=== PATIENT | male | born 1955 | race Caucasian/White ===

== ENCOUNTER 2021-04-27 00:26 | Observation (INO) | payer MEDICARE, SELFPAY ==
[2021-04-27] VITALS (13 sets, daily range): BP systolic 105–144; BP diastolic 54–90; PULSE 62–94; RESP 15–24; TEMP 36.7–39.4; O2SAT 90–100; BMI 38.0; BMI 39.4
--- NOTE | 2021-04-27 01:00 | PC.NURSE ---
spoke w/ poison control about pt's ivermectin use. Poison control advised most common side effects are abd pain, n/v. there is no toxic dose listed
--- NOTE | 2021-04-27 01:26 | ED_ITS ---
Documented by User: [email or web address] Julio 04/27/21 18:14 HPI - Abdominal Pain General: Chief Complaint: ER Hold Stated Complaint: severe abd pains Time Seen by Provider: 04/27/21 01:24 History of Present Illness: HPI narrative: 65-year-old male patient comes in with right lower quadrant abdominal pain. Patient reports pain has been going on since last night but has been worse tonight. Patient reported diarrhea yesterday. Patient has been ill since Sunday with upper respiratory infection and tested positive for COVID-19 on Sunday. Patient spouse is giving him ivermectin personal protection specialist 1 mill per 100 pounds since yesterday. Patient appears unwell. Patient appears in moderate to severe pain. Associated Symptoms: Reports nausea Review of Systems General: Reports: 10 or more systems reviewed and unremarkable except in HPI and below GI: Reports: abdominal pain and nausea PFSH ED PFSH: Medical History (Updated 04/27/21 @ 09:21 by Larisa Muller MD) Arthritis BMI 38.0-38.9,adult Erectile dysfunction sildenafil GERD (gastroesophageal reflux disease) Gout Hyperlipidemia Hypertension Surgical History (Updated 04/27/21 @ 08:28 by Jeremy Lundberg MD) History of blepharoplasty History of knee surgery Bilateral History of ventral hernia repair x 6 ([place], [place], etc.) Status post cholecystectomy Family History (Updated 04/27/21 @ 09:07 by Larisa Muller MD) Son Diabetes Type 1 diabetes Social History (Updated 04/27/21 @ 09:07 by Larisa Muller MD) Smoking and tobacco status: never smoked Alcohol intake: current Alcohol use comment: Rare Substance/Drug Use: never Household members: spouse Marital status: Physical Exam Const: COMMON NORMALS: no acute distress and patient oriented x3 GENERAL APPEARANCE: cooperative HENMT: COMMON NORMALS: normocephalic and Normal external nose present HEAD & SCALP: normal to inspection and normocephalic NOSE: Normal external nose present MOUTH: Normal oral and palatal mucosa present Eye: GENERAL EYE: appearance normal, both eyes and all related structures Neck/C-Spine: COMMON NORMALS: full ROM Lymph: LYMPHATIC: no lymphadenopathy noted Chest: COMMONS NORMALS: normal inspection of the chest Resp: COMMON NORMALS: normal respiratory effort EFFORT & INSPECTION: Yes able to speak in complete sentences Cardio: COMMON NORMALS: regular rate and regular rhythm RATE: regular rate RHYTHM: regular rhythm GI: COMMON NORMALS: Soft to palpation AUSCULTATION: Yes Hyperactive bowel sounds present PALPATION: Yes Soft to palpation, Yes Tenderness to palpation present (GI) Details: RLQ, No Guarding due to palpation present (GI) and Yes Re bound tenderness present : COMMON NORMALS: Yes no CVA tenderness BLADDER/KIDNEY EXAM: Yes no CVA tenderness Back/Pelvis: COMMON NORMALS: no CVA tenderness and thoracic and lumbar spine normal to inspection Extremity: COMMON NORMALS: normal to inspection Neuro: COMMON NORMALS: patient oriented x3 and moves all extremities Psych: COMMON NORMALS: mental status grossly normal and cooperative Skin: COMMON NORMALS: no rashes or lesions noted GENERAL SKIN EXAM: no rashes or lesions noted Course ED course: 030, reviewed patient with Dr. Sanchez as he is to assume care at patient on my end of shift. Vital Signs: Vital signs: Vital Signs Temperature 99.7 F H 04/27/21 15:50 Pulse Rate 81 04/27/21 15:50 Respiratory Rate 18 04/27/21 15:50 Blood Pressure 138/90 04/27/21 15:50 Pulse Oximetry 95 04/27/21 15:50 MDM - Abdominal Pain Lab Data: Labs: Lab Results 04/27/21 04/27/21 04/27/21 01:40 01:40 01:40 WBC 7.5 10^3/uL 10^3/ uL (4.0-10.0) RBC 5.81 10^6/uL H 10 ^6/uL (4.1-5.3) Hgb 17.9 g/dL H g/dL (11.7-16.6) Hct 53.3 % H % (42.0-52.0) MCV 91.7 fl fl (80-94) MCH 30.8 pg pg (28.0-34.0) MCHC 33.6 g/dL g/dL (30.0-36.0) RDW 12.6 % % (12.1-15.1) Plt Count 185 10^3/cmm 10^3 /cmm (130-400) MPV 11.5 fL H fL (7.4-10.4) Neut % (Auto) 72.0 % % Lymph % (Auto) 16.9 % % [place] % (Auto) 10.4 % % Eos % (Auto) 0.0 % % Baso % (Auto) 0.3 % % Neut # (Auto) 5.41 10^3/uL 10^3 /uL (1.8-7.7) Lymph # (Auto) 1.3 10^3/uL 10^3/ uL (0.8-4.8) [place] # (Auto) 0.8 10^3/uL 10^3/ uL (0.2-0.9) Eos # (Auto) 0.0 10^3/uL 10^3/ uL (0.0-0.8) Baso # (Auto) 0.0 10^3/uL 10^3/ uL (0.0-0.1) Nucleated RBC % (a uto) 0 % % Nucleated RBCs # 0.0 /100WBC /100W BC PT INR Sodium 136 mmol/L mmol/L (136-145) Potassium 5.1 mmol/L mmol/L (3.5-5.1) Chloride 102 mmol/L mmol/L (98-107) Carbon Dioxide 17 mmol/L L mmol/ L (22-29) Anion Gap 22.1 H (5-19) BUN 21 mg/dL mg/dL (8-23) Creatinine 1.0 mg/dL mg/dL (0.7-1.2) GFR Calculation 74.8 mL/min L mL/ min (90-130) Glucose 135 mg/dL H mg/dL (65-115) Calculated Osmolal ity 287 mOsm/kg mOsm/ kg (285-295) Lactate 1.4 mmol/L mmol/L (0.5-2.2) Calcium 7.9 mg/dL L mg/dL (8.5-10.5) Total Bilirubin 0.3 mg/dL mg/dL (0.15-1.2) AST 44 U/L H U/L (0-40) ALT 29 U/L U/L (0-41) Alkaline Phosphata se 64 IU/L IU/L (40-130) Total Protein 7.3 g/dL g/dL (6.6-8.7) Albumin 4.2 g/dL g/dL (3.5-5.2) Globulin 3.1 g/dL g/dL (1.3-4.6) Lipase 38 U/L U/L (13-60) 04/27/21 01:40 WBC RBC Hgb Hct MCV MCH MCHC RDW Plt Count MPV Neut % (Auto) Lymph % (Auto) [place] % (Auto) Eos % (Auto) Baso % (Auto) Neut # (Auto) Lymph # (Auto) [place] # (Auto) Eos # (Auto) Baso # (Auto) Nucleated RBC % (a uto) Nucleated RBCs # PT 12.40 SECONDS SEC ONDS (12.1-14.9) INR 0.90 (0.8-1.2) Sodium Potassium Chloride Carbon Dioxide Anion Gap BUN Creatinine GFR Calculation Glucose Calculated Osmolal ity Lactate Calcium Total Bilirubin AST ALT Alkaline Phosphata se Total Protein Albumin Globulin Lipase Discharge Plan Discharge Patient Disposition: Placed in Observation Admit Provider: Latonia Aponte Clinical Impression: COVID-19 Rectus sheath hematoma Qualifiers: Encounter type: initial encounter Qualified Code(s): S30.1XXA - Contusion of abdominal wall, initial encounter Coding Level of Care Code ED Injection Molding Engineer for Chg Fwd Exam Comprehensive Documented by User: Satish Sanchez MD 04/27/21 05:22 HPI - Abdominal Pain General: Chief Complaint: ER Hold Stated Complaint: severe abd pains Time Seen by Provider: 04/27/21 01:24 [facility] ED PFSH: Medical History (Updated 04/27/21 @ 09:21 by Larisa Muller MD) Arthritis BMI 38.0-38.9,adult Erectile dysfunction sildenafil GERD (gastroesophageal reflux disease) Gout Hyperlipidemia Hypertension Surgical History (Updated 04/27/21 @ 08:28 by Jeremy Lundberg MD) History of blepharoplasty History of knee surgery Bilateral History of ventral hernia repair x 6 ([place], [place], etc.) Status post cholecystectomy Family History (Updated 04/27/21 @ 09:07 by Lairsa Muller MD) Son Diabetes Type 1 diabetes Social History (Updated 04/27/21 @ 09:07 by Larisa Muller MD) Smoking and tobacco status: never smoked Alcohol intake: current Alcohol use comment: Rare Substance/Drug Use: never Household members: spouse Marital status: Course Vital Signs: Vital signs: Vital Signs Temperature 99.7 F H 04/27/21 15:50 Pulse Rate 81 04/27/21 15:50 Respiratory Rate 18 04/27/21 15:50 Blood Pressure 138/90 04/27/21 15:50 Pulse Oximetry 95 04/27/21 15:50 MDM - Abdominal Pain MDM Narrative: Medical decision making narrative: Patient presents here with abdominal pain he has a rectus sheath hematoma patient's INR here is normal hemoglobin is normal as well as vital signs here been normal patient does have Covid I spoke to the hospitalist who is admitting also spoke to surgeon who is consulted and will admit for observation at this time. Lab Data: Labs: Lab Results 04/27/21 04/27/21 04/27/21 01:40 01:40 01:40 WBC 7.5 10^3/uL 10^3/ uL (4.0-10.0) RBC 5.81 10^6/uL H 10 ^6/uL (4.1-5.3) Hgb 17.9 g/dL H g/dL (11.7-16.6) Hct 53.3 % H % (42.0-52.0) MCV 91.7 fl fl (80-94) MCH 30.8 pg pg (28.0-34.0) MCHC 33.6 g/dL g/dL (30.0-36.0) RDW 12.6 % % (12.1-15.1) Plt Count 185 10^3/cmm 10^3 /cmm (130-400) MPV 11.5 fL H fL (7.4-10.4) Neut % (Auto) 72.0 % % Lymph % (Auto) 16.9 % % [place] % (Auto) 10.4 % % Eos % (Auto) 0.0 % % Baso % (Auto) 0.3 % % Neut # (Auto) 5.41 10^3/uL 10^3 /uL (1.8-7.7) Lymph # (Auto) 1.3 10^3/uL 10^3/ uL (0.8-4.8) [place] # (Auto) 0.8 10^3/uL 10^3/ uL (0.2-0.9) Eos # (Auto) 0.0 10^3/uL 10^3/ uL (0.0-0.8) Baso # (Auto) 0.0 10^3/uL 10^3/ uL (0.0-0.1) Nucleated RBC % (a uto) 0 % % Nucleated RBCs # 0.0 /100WBC /100W BC PT INR Sodium 136 mmol/L mmol/L (136-145) Potassium 5.1 mmol/L mmol/L (3.5-5.1) Chloride 102 mmol/L mmol/L (98-107) Carbon Dioxide 17 mmol/L L mmol/ L (22-29) Anion Gap 22.1 H (5-19) BUN 21 mg/dL mg/dL (8-23) Creatinine 1.0 mg/dL mg/dL (0.7-1.2) GFR Calculation 74.8 mL/min L mL/ min (90-130) Glucose 135 mg/dL H mg/dL (65-115) Calculated Osmolal ity 287 mOsm/kg mOsm/ kg (285-295) Lactate 1.4 mmol/L mmol/L (0.5-2.2) Calcium 7.9 mg/dL L mg/dL (8.5-10.5) Total Bilirubin 0.3 mg/dL mg/dL (0.15-1.2) AST 44 U/L H U/L (0-40) ALT 29 U/L U/L (0-41) Alkaline Phosphata se 64 IU/L IU/L (40-130) Total Protein 7.3 g/dL g/dL (6.6-8.7) Albumin 4.2 g/dL g/dL (3.5-5.2) Globulin 3.1 g/dL g/dL (1.3-4.6) Lipase 38 U/L U/L (13-60) 04/27/21 01:40 WBC RBC Hgb Hct MCV MCH MCHC RDW Plt Count MPV Neut % (Auto) Lymph % (Auto) [place] % (Auto) Eos % (Auto) Baso % (Auto) Neut # (Auto) Lymph # (Auto) [place] # (Auto) Eos # (Auto) Baso # (Auto) Nucleated RBC % (a uto) Nucleated RBCs # PT 12.40 SECONDS SEC ONDS (12.1-14.9) INR 0.90 (0.8-1.2) Sodium Potassium Chloride Carbon Dioxide Anion Gap BUN Creatinine GFR Calculation Glucose Calculated Osmolal ity Lactate Calcium Total Bilirubin AST ALT Alkaline Phosphata se Total Protein Albumin Globulin Lipase Imaging Data ^: CT Abd/Pel: Radiologist's impression: [id number] [id number] [address] Scan Report Signed with Addenda Patient: Will Moy Unit #: [id number] : 1955 Age/Sex: 65 / M ADM Date: 04/27/21 Loc: ER Room/Bed: Attending Dr: Ordering Provider/Ordering MD: Harry Jones NP Date of Service: 04/27/21 Procedure(s): CT abdomen pelvis w con* [id number] Accession Number(s): [id number] Report Number: [id number]/CT abdomen pelvis w con* [id number] THIS REPORT CONTAINS FINDINGS THAT MAY BE CRITICAL TO PATIENT CARE. The findings were verbally communicated via telephone conference with Dr. Sanchez by Dr. Corey on 04/27/2021 4:52 AM NATIONAL SALES EXECUTIVE. The results were acknowledged and understood. Addendum Dictated By: Kim Corey DO Addendum Signed By: Kim Corey DO Signed Date/Time: 04/27 0454 Addendum Cosigned By: PROCEDURE INFORMATION: Exam: CT Abdomen And Pelvis With Contrast Exam date and time: 04/27/2021 1:32 AM Age: 65 years old Clinical indication: Abdominal pain; Localized; Right lower quadrant (rlq); Prior surgery; Surgery type: Gb. Hernia mesh. ; Patient HX: C/O severe rlq pain. Patient is covid +. ; Additional info: Severe right lower abd pain TECHNIQUE: Imaging protocol: Computed tomography of the abdomen and pelvis with contrast. Radiation optimization: All CT scans at this facility use at least one of these dose optimization techniques: automated exposure control; mA and/or kV adjustment per patient size (includes targeted exams where dose is matched to clinical indication); or iterative reconstruction. Contrast material: OMNI 300; Contrast volume: 95 ml; Contrast route: INTRAVENOUS (IV); COMPARISON: CT abdomen pelvis w con* [id number] 10/20/2018 6:39 PM RADIATION DOSE METRICS: Total DLP (mGy-cm): 1910.6 FINDINGS: Tubes, catheters and devices: Abdominal surgical mesh device in position within the inner margin of abdominal wall. Lungs: Dependent atelectasis lower lungs posteriorly. There are minor patchy interstitial opacities peripherally within the lower lungs partially ground-glass in attenuation. Minor lingular atelectasis. Liver: Normal. No mass. Gallbladder and bile ducts: Postoperative cholecystectomy. Pancreas: Normal. No ductal dilation. Spleen: Normal. No splenomegaly. Adrenal glands: Normal. No mass. Kidneys and ureters: Normal. No hydronephrosis. Stomach and bowel: Prominent colonic diverticulosis. Medial extending duodenal diverticulum containing debris and air. Appendix: No evidence of appendicitis. Intraperitoneal space: Unremarkable. No free air. No significant fluid collection. Vasculature: Atherosclerotic calcification abdominal aorta. Lymph nodes: Unremarkable. No enlarged lymph nodes. Urinary bladder: Unremarkable as visualized. Reproductive: Unremarkable as visualized. Bones/joints: Unremarkable. No acute fracture. Soft tissues: Abnormal expansion of the right abdominal rectus musculature with lobular heterogeneous mixed attenuating mass suspicious for hematoma. Curvilinear hyperattenuating extravasation of contrast suspicious for active hemorrhage. Overall hematoma measures approximately 18.3 cm craniocaudal by 12.5 cm transverse by 5.8 cm antral posterior. Focal fatty rounded lesion in the right upper quadrant which could reflect chronic marginated omental lipoma or a chronic appearance of minor focal fat necrosis. CT/CT abdomen pelvis w con* [id number] IMPRESSION: 1. Right rectus abdominal muscular hematoma with suspicion active hemorrhage. 2. Atherosclerosis abdominal aorta. 3. Duodenal diverticulum. 4. Colonic diverticulosis. 5. Atelectasis lower lungs posteriorly with minor ground-glass interstitial patchy opacities peripherally in the lower lobe of lungs. Discharge Plan Discharge Patient Disposition: Placed in Observation Admit Provider: Latonia Aponte Clinical Impression: COVID-19 Rectus sheath hematoma Qualifiers: Encounter type: initial encounter Qualified Code(s): S30.1XXA - Contusion of abdominal wall, initial encounter Coding Level of Care Code ED Injection Molding Engineer for Shar Fwd Exam Comprehensive Documented by User: Larisa Muller MD 04/27/21 10:20 HPI - Abdominal Pain General: Chief Complaint: ER Hold Stated Complaint: severe abd pains Time Seen by Provider: 04/27/21 01:24 History of Present Illness: HPI narrative: I inadvertently entered the ED chart when assuming care of patient. I did not participate in the care of patient during the emergency department part of his stay. [facility] ED PFSH: Medical History (Updated 04/27/21 @ 09:21 by Larisa Muller MD) Arthritis BMI 38.0-38.9,adult Erectile dysfunction sildenafil GERD (gastroesophageal reflux disease) Gout Hyperlipidemia Hypertension Surgical History (Updated 04/27/21 @ 08:28 by Jeremy Lundberg MD) History of blepharoplasty History of knee surgery Bilateral History of ventral hernia repair x 6 ([place], [place], etc.) Status post cholecystectomy Family History (Updated 04/27/21 @ 09:07 by Larisa Muller MD) Son Diabetes Type 1 diabetes Social History (Updated 04/27/21 @ 09:07 by Larisa Muller MD) Smoking and tobacco status: never smoked Alcohol intake: current Alcohol use comment: Rare Substance/Drug Use: never Household members: spouse Marital status: Course Vital Signs: Vital signs: Vital Signs Temperature 99.7 F H 04/27/21 15:50 Pulse Rate 81 04/27/21 15:50 Respiratory Rate 18 04/27/21 15:50 Blood Pressure 138/90 04/27/21 15:50 Pulse Oximetry 95 04/27/21 15:50 MDM - Abdominal Pain Lab Data: Labs: Lab Results 04/27/21 04/27/21 04/27/21 01:40 01:40 01:40 WBC 7.5 10^3/uL 10^3/ uL (4.0-10.0) RBC 5.81 10^6/uL H 10 ^6/uL (4.1-5.3) Hgb 17.9 g/dL H g/dL (11.7-16.6) Hct 53.3 % H % (42.0-52.0) MCV 91.7 fl fl (80-94) MCH 30.8 pg pg (28.0-34.0) MCHC 33.6 g/dL g/dL (30.0-36.0) RDW 12.6 % % (12.1-15.1) Plt Count 185 10^3/cmm 10^3 /cmm (130-400) MPV 11.5 fL H fL (7.4-10.4) Neut % (Auto) 72.0 % % Lymph % (Auto) 16.9 % % [place] % (Auto) 10.4 % % Eos % (Auto) 0.0 % % Baso % (Auto) 0.3 % % Neut # (Auto) 5.41 10^3/uL 10^3 /uL (1.8-7.7) Lymph # (Auto) 1.3 10^3/uL 10^3/ uL (0.8-4.8) [place] # (Auto) 0.8 10^3/uL 10^3/ uL (0.2-0.9) Eos # (Auto) 0.0 10^3/uL 10^3/ uL (0.0-0.8) Baso # (Auto) 0.0 10^3/uL 10^3/ uL (0.0-0.1) Nucleated RBC % (a uto) 0 % % Nucleated RBCs # 0.0 /100WBC /100W BC PT INR Sodium 136 mmol/L mmol/L (136-145) Potassium 5.1 mmol/L mmol/L (3.5-5.1) Chloride 102 mmol/L mmol/L (98-107) Carbon Dioxide 17 mmol/L L mmol/ L (22-29) Anion Gap 22.1 H (5-19) BUN 21 mg/dL mg/dL (8-23) Creatinine 1.0 mg/dL mg/dL (0.7-1.2) GFR Calculation 74.8 mL/min L mL/ min (90-130) Glucose 135 mg/dL H mg/dL (65-115) Calculated Osmolal ity 287 mOsm/kg mOsm/ kg (285-295) Lactate 1.4 mmol/L mmol/L (0.5-2.2) Calcium 7.9 mg/dL L mg/dL (8.5-10.5) Total Bilirubin 0.3 mg/dL mg/dL (0.15-1.2) AST 44 U/L H U/L (0-40) ALT 29 U/L U/L (0-41) Alkaline Phosphata se 64 IU/L IU/L (40-130) Total Protein 7.3 g/dL g/dL (6.6-8.7) Albumin 4.2 g/dL g/dL (3.5-5.2) Globulin 3.1 g/dL g/dL (1.3-4.6) Lipase 38 U/L U/L (13-60) 04/27/21 01:40 WBC RBC Hgb Hct MCV MCH MCHC RDW Plt Count MPV Neut % (Auto) Lymph % (Auto) [place] % (Auto) Eos % (Auto) Baso % (Auto) Neut # (Auto) Lymph # (Auto) [place] # (Auto) Eos # (Auto) Baso # (Auto) Nucleated RBC % (a uto) Nucleated RBCs # PT 12.40 SECONDS SEC ONDS (12.1-14.9) INR 0.90 (0.8-1.2) Sodium Potassium Chloride Carbon Dioxide Anion Gap BUN Creatinine GFR Calculation Glucose Calculated Osmolal ity Lactate Calcium Total Bilirubin AST ALT Alkaline Phosphata se Total Protein Albumin Globulin Lipase Discharge Plan Discharge Patient Disposition: Placed in Observation Admit Provider: Latonia Aponte Clinical Impression: COVID-19 Rectus sheath hematoma Qualifiers: Encounter type: initial encounter Qualified Code(s): S30.1XXA - Contusion of abdominal wall, initial encounter Coding Level of Care Code ED Injection Molding Engineer for Chg Fwd Exam Comprehensive
--- NOTE | 2021-04-27 01:32 | CTR_ITS ---
PROCEDURE INFORMATION: Exam: CT Abdomen And Pelvis With Contrast Exam date and time: 04/27/2021 1:32 AM Age: 65 years old Clinical indication: Abdominal pain; Localized; Right lower quadrant (rlq); Prior surgery; Surgery type: Gb. Hernia mesh. ; Patient HX: C/O severe rlq pain. Patient is covid +. ; Additional info: Severe right lower abd pain TECHNIQUE: Imaging protocol: Computed tomography of the abdomen and pelvis with contrast. Radiation optimization: All CT scans at this facility use at least one of these dose optimization techniques: automated exposure control; mA and/or kV adjustment per patient size (includes targeted exams where dose is matched to clinical indication); or iterative reconstruction. Contrast material: OMNI 300; Contrast volume: 95 ml; Contrast route: INTRAVENOUS (IV); COMPARISON: CT abdomen pelvis w con* [id number] 10/20/2018 6:39 PM RADIATION DOSE METRICS: Total DLP (mGy-cm): 1910.6 FINDINGS: Tubes, catheters and devices: Abdominal surgical mesh device in position within the inner margin of abdominal wall. Lungs: Dependent atelectasis lower lungs posteriorly. There are minor patchy interstitial opacities peripherally within the lower lungs partially ground-glass in attenuation. Minor lingular atelectasis. Liver: Normal. No mass. Gallbladder and bile ducts: Postoperative cholecystectomy. Pancreas: Normal. No ductal dilation. Spleen: Normal. No splenomegaly. Adrenal glands: Normal. No mass. Kidneys and ureters: Normal. No hydronephrosis. Stomach and bowel: Prominent colonic diverticulosis. Medial extending duodenal diverticulum containing debris and air. Appendix: No evidence of appendicitis. Intraperitoneal space: Unremarkable. No free air. No significant fluid collection. Vasculature: Atherosclerotic calcification abdominal aorta. Lymph nodes: Unremarkable. No enlarged lymph nodes. Urinary bladder: Unremarkable as visualized. Reproductive: Unremarkable as visualized. Bones/joints: Unremarkable. No acute fracture. Soft tissues: Abnormal expansion of the right abdominal rectus musculature with lobular heterogeneous mixed attenuating mass suspicious for hematoma. Curvilinear hyperattenuating extravasation of contrast suspicious for active hemorrhage. Overall hematoma measures approximately 18.3 cm craniocaudal by 12.5 cm transverse by 5.8 cm antral posterior. Focal fatty rounded lesion in the right upper quadrant which could reflect chronic marginated omental lipoma or a chronic appearance of minor focal fat necrosis. CT/CT abdomen pelvis w con* [id number] IMPRESSION: 1. Right rectus abdominal muscular hematoma with suspicion active hemorrhage. 2. Atherosclerosis abdominal aorta. 3. Duodenal diverticulum. 4. Colonic diverticulosis. 5. Atelectasis lower lungs posteriorly with minor ground-glass interstitial patchy opacities peripherally in the lower lobe of lungs.
[2021-04-27] MEDS: sodium chloride 0.9% 1,000 ML 999 ML IV (02:00)
[2021-04-27] MEDS: ondansetron 2 mg/ML SDV 2 mL 4 MG IVP (02:05)
[2021-04-27 02:11] LABS: Basophils % 0.3 %; Hematocrit 53.3 % (42.0-52.0); Hemoglobin 17.9 g/dL (11.7-16.6); Lymphocytes # 1.3 10^3/uL (0.8-4.8); Lymphocytes % 16.9 %; Mean Corpuscular HGB Conc 33.6 g/dL (30.0-36.0); Mean Corpuscular Hemoglobin 30.8 pg (28.0-34.0); Mean Corpuscular Volume 91.7 fl (80-94); Mean Platelet Volume 11.5 fL (7.4-10.4); Monocytes # 0.8 10^3/uL (0.2-0.9); Monocytes % 10.4 %; Neutrophils # 5.41 10^3/uL (1.8-7.7); Nucleated Red Blood Cells % 0 %; Platelet Count 185 10^3/cmm (130-400); Red Blood Count 5.81 10^6/uL (4.1-5.3); Red Cell Distribution Width 12.6 % (12.1-15.1); White Blood Count 7.5 10^3/uL (4.0-10.0)
[2021-04-27 02:31] LABS: Alanine Aminotransferase 29 U/L (0-41); Albumin Level 4.2 g/dL (3.5-5.2); Alkaline Phosphatase 64 IU/L (40-130); Anion Gap 22.1 (5-19); Aspartate Amino Transferase 44 U/L (0-40); Blood Urea Nitrogen 21 mg/dL (8-23); Calcium 7.9 mg/dL (8.5-10.5); Carbon Dioxide 17 mmol/L (22-29); Chloride 102 mmol/L (98-107); Globulin 3.1 g/dL (1.3-4.6); Glomerular Filtration Rate 74.8 mL/min (90-130); Glucose 135 mg/dL (65-115); Lipase 38 U/L (13-60); Osmolality Calculated 287 mOsm/kg (285-295); Potassium 5.1 mmol/L (3.5-5.1); Sodium 136 mmol/L (136-145); Total Bilirubin 0.3 mg/dL (0.15-1.2); Total Protein 7.3 g/dL (6.6-8.7)
[2021-04-27 02:32] LABS: Lactate (Lactic Acid level) 1.4 mmol/L (0.5-2.2)
[2021-04-27] MEDS: morphine 4 mg/mL SDV 1 mL IVP ×2 (02:38→05:05)
[2021-04-27] MEDS: iohexol 300 mg/mL 100 mL Btl IV (03:10)
--- NOTE | 2021-04-27 05:49 | PC.NURSE ---
vo obtained from Dr Sanchez for abdominal binder 14 binder placed on pt without difficulties. Pt states some relief from pain after binder placed
--- NOTE | 2021-04-27 06:27 | PM.HP ---
Providers/Chief Complaint Admitting Physician: Larisa Muller MD Chief Complaint: severe abd pains History of Present Illness Will Moy is a 65 year old male with a known history of COVID-19 who presented to the emergency room with chief complaint of abdominal pain. Pain was somewhat sudden in onset this evening when he was getting up out of bed to go to the bathroom. He has had several severe bouts of coughing prior to this. Pain is located in the right lower quadrant. Severe in nature. Nothing seems to have made it better. Worse with movement or touching. He has been taking animal ivermectin at 1 mL per 100 pounds for a couple of days. He has had some loose stools but denied significant straining with bowel movements. No blood in his stools or black tarry stools. No vomiting. He is not on any chronic anticoagulation but he does take chronic NSAID therapy. In the emergency room, Mr. Moy required multiple doses of pain medication for any amount of improvement. Ultimately a CT scan was done showing right-sided rectus sheath muscle hematoma with evidence of potential active ongoing bleeding. Initial hemoglobin was 17. He has a history of multiple abdominal hernia repairs in the past. He is being admitted to observation status for monitoring. Dr. Lundberg agreed to see the patient in consultation. Patient has not had Covid vaccination. Review of Systems Const: Reports: chills, body aches, fatigue and malaise; Denies: fever(s) Eyes: Denies: change in vision ENMT: Reports: dry mouth and nasal congestion; Denies: throat pain Card: Denies: chest pain, palpitations or edema Resp: Reports: dyspnea, productive cough and non-productive cough; Denies: hemoptysis GI: Reports: abdominal pain, nausea and diarrhea; Denies: vomiting, constipation, hematochezia or melena : Reports: urinary frequency and nocturia; Denies: hematuria Musc: Reports: back pain, extremity pain and muscle weakness Skin/Breast: Denies: rash, pruritus or sores Neuro: Denies: headache(s), numbness in extremities, weakness in extremities or difficulty walking Psych: Denies: anxiety or depression Kodi/Lymph: Denies: easy bruising or easy bleeding Medications/Allergies Home Medications Medication Instructions Recorded Confirmed Last Taken Type amlodipine 5 mg tablet 5 mg PO QAM 04/25/21 04/27/21 Unknown History lisinopril 20 mg tablet 20 mg PO QAM 04/25/21 04/27/21 Unknown History meloxicam 15 mg tablet 15 mg PO QAM 04/25/21 04/27/21 Unknown History omeprazole 20 mg tablet,delayed 20 mg PO QAM 04/25/21 04/27/21 Unknown History release triamterene 75 1 tab PO QAM 04/25/21 04/27/21 Unknown History mg-hydrochlorothiazide 50 mg tablet Alpha Alpha Pills 3 tab PO QAM 04/27/21 04/27/21 Unknown History ascorbic acid (vitamin C) [Vitamin 1,000 mg PO QAM 04/27/21 04/27/21 Unknown History C] atorvastatin 20 mg PO QAM 04/27/21 04/27/21 Unknown History evening primrose oil [Evening 1,000 mg PO QAM 04/27/21 04/27/21 Unknown History [place]] glucos sul [id number] 2 cap PO QAM 04/27/21 04/27/21 Unknown History [Glucosamine Chondroitin] ivermectin 1 tab PO QAM 04/27/21 04/27/21 Unknown History naproxen sodium [Aleve] 220 mg PO Q12H PRN 04/27/21 04/27/21 Unknown History sildenafil 50 mg PO PRN PRN 04/27/21 04/27/21 Unknown History Allergies Allergy/AdvReac Type Severity Reaction Status Date / Time No Known Allergies Allergy Verified 04/27/21 08:52 PFSH Acute PFSH: Medical History (Updated 04/27/21 @ 09:21 by Larisa Muller MD) Arthritis BMI 38.0-38.9,adult Erectile dysfunction sildenafil GERD (gastroesophageal reflux disease) Gout Hyperlipidemia Hypertension Surgical History (Updated 04/27/21 @ 08:28 by Jeremy Lundberg MD) History of blepharoplasty History of knee surgery Bilateral History of ventral hernia repair x 6 ([place], [place], etc.) Status post cholecystectomy Family History (Updated 04/27/21 @ 09:07 by Larisa Muller MD) Son Diabetes Type 1 diabetes Social History (Updated 04/27/21 @ 09:07 by Larisa Muller MD) Smoking and tobacco status: never smoked Alcohol intake: current Alcohol use comment: Rare Substance/Drug Use: never Household members: spouse Marital status: Vitals/I&O/Wt Last Vital Signs Temp 98.5 F 04/27/21 00:46 Pulse 87 04/27/21 05:30 Resp 21 H 04/27/21 05:30 BP 144/54 04/27/21 05:30 Pulse Ox 100 04/27/21 05:30 04/26/21 04/26/21 04/27/21 14:59 22:59 06:59 Intake Total 1000 / 1000 Balance 1000 / 1000 Weight last 48 hrs Weight 127.006 kg Physical Exam Narrative: EXAM NARRATIVE: Constitutional: Awake and alert, cooperative but uncomfortable appearing HEENT: Normocephalic, atraumatic, extraocular movements intact, moist membranes Neck: Supple Respiratory: Scattered crackles, no accessory muscle use Cardiovascular: Regular rhythm Abdomen: Soft, obese, tender right lower quadrant to minimal palpation, no external bruising, positive bowel sounds Extremities: No pitting edema Skin: Dry, no rashes Neuro: Speech clear, face symmetric, moves all extremities Psych: Normal affect Data : 04/27/21 08:09 04/27/21 01:40 Other Labs: Laboratory Results WBC 7.5 10^3/uL (4.0-10.0) 04/27/21 01:40 RBC 5.81 10^6/uL (4.1-5.3) H 04/27/21 01:40 Hgb 16.4 g/dL (11.7-16.6) 04/27/21 08:09 Hct 50.3 % (42.0-52.0) 04/27/21 08:09 MCV 91.7 fl (80-94) 04/27/21 01:40 MCH 30.8 pg (28.0-34.0) 04/27/21 01:40 MCHC 33.6 g/dL (30.0-36.0) 04/27/21 01:40 RDW 12.6 % (12.1-15.1) 04/27/21 01:40 Plt Count 185 10^3/cmm (130-400) 04/27/21 01:40 MPV 11.5 fL (7.4-10.4) H 04/27/21 01:40 Neut % (Auto) 72.0 % 04/27/21 01:40 Lymph % (Auto) 16.9 % 04/27/21 01:40 [place] % (Auto) 10.4 % 04/27/21 01:40 Eos % (Auto) 0.0 % 04/27/21 01:40 Baso % (Auto) 0.3 % 04/27/21 01:40 Neut # (Auto) 5.41 10^3/uL (1.8-7.7) 04/27/21 01:40 Lymph # (Auto) 1.3 10^3/uL (0.8-4.8) 04/27/21 01:40 [place] # (Auto) 0.8 10^3/uL (0.2-0.9) 04/27/21 01:40 Eos # (Auto) 0.0 10^3/uL (0.0-0.8) 04/27/21 01:40 Baso # (Auto) 0.0 10^3/uL (0.0-0.1) 04/27/21 01:40 Nucleated RBC % (auto) 0 % 04/27/21 01:40 Nucleated RBCs # 0.0 /100WBC 04/27/21 01:40 PT 12.40 SECONDS (12.1-14.9) 04/27/21 01:40 INR 0.90 (0.8-1.2) 04/27/21 01:40 APTT 28.9 SECONDS (23.9-36.7) 04/27/21 08:09 Sodium 136 mmol/L (136-145) 04/27/21 01:40 Potassium 5.1 mmol/L (3.5-5.1) 04/27/21 01:40 Chloride 102 mmol/L (98-107) 04/27/21 01:40 Carbon Dioxide 17 mmol/L (22-29) L 04/27/21 01:40 Anion Gap 22.1 (5-19) H 04/27/21 01:40 BUN 21 mg/dL (8-23) 04/27/21 01:40 Creatinine 1.0 mg/dL (0.7-1.2) 04/27/21 01:40 GFR Calculation 74.8 mL/min (90-130) L 04/27/21 01:40 Glucose 135 mg/dL (65-115) H 04/27/21 01:40 Calculated Osmolality 287 mOsm/kg (285-295) 04/27/21 01:40 Lactate 1.4 mmol/L (0.5-2.2) 04/27/21 01:40 Calcium 7.9 mg/dL (8.5-10.5) L 04/27/21 01:40 Total Bilirubin 0.3 mg/dL (0.15-1.2) 04/27/21 01:40 AST 44 U/L (0-40) H 04/27/21 01:40 ALT 29 U/L (0-41) 04/27/21 01:40 Alkaline Phosphatase 64 IU/L (40-130) 04/27/21 01:40 Total Protein 7.3 g/dL (6.6-8.7) 04/27/21 01:40 Albumin 4.2 g/dL (3.5-5.2) 04/27/21 01:40 Globulin 3.1 g/dL (1.3-4.6) 04/27/21 01:40 Lipase 38 U/L (13-60) 04/27/21 01:40 Impressions Abdomen/Pelvis CT 04/27/21 01:32 IMPRESSION: 1. Right rectus abdominal muscular hematoma with suspicion active hemorrhage. 2. Atherosclerosis abdominal aorta. 3. Duodenal diverticulum. 4. Colonic diverticulosis. 5. Atelectasis lower lungs posteriorly with minor ground-glass interstitial patchy opacities peripherally in the lower lobe of lungs. ADDENDUM: 04/27/21 0454 THIS REPORT CONTAINS FINDINGS THAT MAY BE CRITICAL TO PATIENT CARE. The findings were verbally communicated via telephone conference with Dr. Sanchez by Dr. Corey on 04/27/2021 4:52 AM [employer]. The results were acknowledged and understood. A&P Assessment and plan (1) Acute abdominal pain: Status: Acute (2) Rectus sheath hematoma: Status: Acute Qualifiers: Encounter type: initial encounter Qualified Code(s): S30.1XXA - Contusion of abdominal wall, initial encounter (3) COVID-19: Status: Acute (4) NSAID long-term use: Status: Acute (5) BMI 38.0-38.9,adult: Status: Chronic (6) Hypertension: Status: Chronic Qualifiers: Hypertension type: primary hypertension Qualified Code(s): I10 - Essential (primary) hypertension (7) Hyperlipidemia: Status: Chronic Qualifiers: Hyperlipidemia type: unspecified Qualified Code(s): E78.5 - Hyperlipidemia, unspecified Additional A&P Information Observation admission Serial H&H Pain control Laxative therapy Hold scheduled NSAID therapy Dr. Lundberg will see the patient in consultation Incentive spirometer and flutter valve Cough suppressant Discussed with patient the need to ensure adequate lung expansion and not limiting lung expansion due to abdominal pain given that he already has known COVID-19. With current BMI and hypertension at risk of progressing to severe COVID. He had already been evaluated and considered for monoclonal antibody treatment. I discussed with him and he deferred to his . Reviewed with his who was happy that we could provide the infusion center in the hospital setting. Gave her an opportunity to ask questions which were answered highlighting the primary benefits and potential side effects covered in the FDA EUA fact sheets. was agreeable to infusion and Mr. Candelaria was also okay after this was determined. Monoclonal antibody infusion has been ordered to be administered today Continue home amlodipine, triamterene/hydrochlorothiazide and lisinopril for blood pressure Continue home statin therapy Continue home PPI Continue home vitamin C Supportive care otherwise Currently low risk for VTE secondary to observation status Findings, concerns and plans were discussed with patient and he was given opportunity to ask questions Anticipate disposition home with outpatient follow-up Full code Attestations Medical Necessity Statement*: Currently anticipate a stay less than two midnights less than 2 minutes in this patient with COVID who after about significant coughing and getting up to go to the bathroom had sudden onset of right-sided abdominal pain has been found to have a rectus sheath hematoma. Currently hemodynamically stable but his COVID is at more risk of progression to severe disease if respiratory efforts are hindered or worsened by expansion of hematoma or uncontrolled pain. Plans are as indicated. Coding Level of Care Code Acute Braille Duplicating Machine Operator for Chg Fwd Diagnoses Acute abdominal pain R10.9 Rectus sheath hematoma S30.1XXA Encounter type: initial encounter COVID-19 U07.1 NSAID long-term use Z79.1 BMI 38.0-38.9,adult Z68.38 Hypertension I10 Hypertension type: primary hypertension Hyperlipidemia E78.5 Hyperlipidemia type: unspecified
--- NOTE | 2021-04-27 08:19 | P.CONIM_ITS ---
Providers/Reason For Consult Consulting Physician/Specialty*: General Surgery Jeremy Lundberg MD Reason for Consult*: Rectus sheath hematoma. Attending Physician: Cristofer Hall MD History of Present Illness History of Present Illness Will Moy is a 65 year old male who was apparently found to be Covid positive this past weekend. He has had increasing coughing at home, sometimes violent coughing per the patient. He has been taking Tylenol PM to help him with sleep, but he says that has been making it more difficult for him to urina te. He got up and tried to urinate last night around 10 PM but have some difficulty with this. He was getting back into bed and felt some sudden pain on the right side of his abdomen. He says he was not coughing at the time. It continued to worsen throughout the night. It was unassociated with any other gastrointestinal symptoms but he ended up coming to the emergency room. A CAT scan showed a rectus sheath hematoma on the right side. The patient has never had this happen before but says he has had 6 ventral hernia repairs with multiple pieces of mesh in the past. The last time this was done was in [place], [place] about 8 years ago. He has had previous repairs in [place], etc. He denies any regular NSAID use and says he is not taking any anticoagulants. Review of Systems Const: Reports: fever(s) ( Low-grade ) Resp: Reports: productive cough; Denies: dyspnea GI: Reports: abdominal pain; Denies: nausea, vomiting or change in stool character : Reports: difficulty urinating ( From Tylenol PM ) Endo: Reports: other Meds/Allergies Home Medications and Allergies Home Medications Medication Instructions Recorded Confirmed Last Taken Type amlodipine 5 mg tablet 5 mg PO DAILY 04/25/21 04/25/21 Unknown History lisinopril 20 mg tablet 20 mg PO DAILY 04/25/21 04/25/21 Unknown History meloxicam 15 mg tablet 15 mg PO DAILY 04/25/21 04/25/21 Unknown History omeprazole 20 mg tablet,delayed 20 mg PO DAILY 04/25/21 04/25/21 Unknown History release triamterene 75 1 tab PO DAILY 04/25/21 04/25/21 Unknown History mg-hydrochlorothiazide 50 mg tablet Allergies Allergy/AdvReac Type Severity Reaction Status Date / Time No Known Allergies Allergy Unverified 04/25/21 14:43 PFSH Acute PFSH: Medical History (Updated 04/27/21 @ 08:23 by Jeremy Lundberg MD) Arthritis GERD (gastroesophageal reflux disease) Gout HTN (hypertension) with goal to be determined Surgical History (Updated 04/27/21 @ 08:28 by Jeremy Lundberg MD) History of blepharoplasty History of knee surgery Bilateral History of ventral hernia repair x 6 ([place], [place], etc.) Status post cholecystectomy Social History (Updated 04/27/21 @ 08:28 by Jeremy Lundberg MD) Smoking and tobacco status: never smoked Alcohol intake: current Alcohol use comment: Rare Vitals/I&O/Wt Last Vital Signs Temp 98.5 F 04/27/21 00:46 Pulse 87 04/27/21 05:30 Resp 21 H 04/27/21 05:30 BP 144/54 04/27/21 05:30 Pulse Ox 100 04/27/21 05:30 04/26/21 04/27/21 04/27/21 22:59 06:59 14:59 Intake Total 1000 / 1000 Balance 1000 / 1000 Weight last 48 hrs Weight 280 lb Physical Exam Narrative: EXAM NARRATIVE: The patient was encountered in his room in the emergency department where he is apparently awaiting for a regular hospital bed open. He does not appear to be in any acute distress. The pupils are equal. No carotid bruits are heard. The lungs seem clear anteriorly. The heart is regular. The abdomen is moderately obese. He has a belly band on that was probably too small for him and was removed. It was not even covering the area of the hematoma adjacent to his umbilicus. He has a somewhat firm area to the right area of the umbilicus without overlying skin changes. It's focally tender to palpation. Bowel sounds are present. The extremities reveal no edema. Neurologically the patient is grossly intact. Data Imaging^: CT Abd/Pel: Radiologist's impression: CT abdomen/pelvis 04/27/2021 IMPRESSION: 1. Right rectus abdominal muscular hematoma with suspicion active hemorrhage. 2. Atherosclerosis abdominal aorta. 3. Duodenal diverticulum. 4. Colonic diverticulosis. 5. Atelectasis lower lungs posteriorly with minor ground-glass interstitial patchy opacities peripherally in the lower lobe of lungs. A&P Assessment and plan (1) Rectus sheath hematoma: CT reviewed. The patient has a right-sided rectus sheath hematoma adjacent to the umbilicus. He has evidence of previous mesh placement on the abdominal wall and one of the areas is just posterior to this. These hematomas normally occur in patients on anticoagulation, which he is not, but I have to assume that all of the multiple abdominal wall surgeries that he has had in the past may have contributed to its formation with increased coughing, etc. The patient is feeling better now. We discussed how most of these end up going away by themselves. I am going to recommend continued conservative management for now. I am not sure a belly band is going to be of much help for him, but a larger band will have to be obtained for him and will need to be placed a little lower on his abdomen to make any difference, anyway. Status: Acute Qualifiers: Encounter type: initial encounter Qualified Code(s): S30.1XXA - Contusion of abdominal wall, initial encounter (2) COVID-19: Status: Acute Consult Attestations Medical Necessity Statement: See admitting service's notation. Coding Level of Care Code Acute Airways Control Specialist for [facility] Fwd Diagnoses Rectus sheath hematoma S30.1XXA Encounter type: initial encounter COVID-19 U07.1
[2021-04-27 08:25] LABS: Hematocrit 50.3 % (42.0-52.0); Hemoglobin 16.4 g/dL (11.7-16.6)
[2021-04-27 08:29] LABS: Partial Thromboplastin Time 28.9 SECONDS (23.9-36.7)
--- NOTE | 2021-04-27 08:52 | PC.PHAR ---
pts verified pts medications
--- NOTE | 2021-04-27 09:27 | PC.NURSE ---
Recieved report from Medic, rounded on pt and introduced self, pt denies any needs at this time
[2021-04-27] MEDS: docusate sodium 100 mg Capsule PO ×2 (09:53→16:57)
[2021-04-27] MEDS: atorvastatin 40 mg Tablet 20 MG PO (09:53)
[2021-04-27] MEDS: pantoprazole DR 40 mg Tablet PO (09:53)
[2021-04-27 10:29] LABS: Hematocrit 41.3 % (42.0-52.0); Hemoglobin 13.6 g/dL (11.7-16.6)
--- NOTE | 2021-04-27 14:11 | PC.NURSE ---
Report called to floor, charge authorizer.
[2021-04-27 16:59] LABS: Hematocrit 48.5 % (42.0-52.0)
--- NOTE | 2021-04-27 18:51 | P.PN_ITS ---
Vitals/I&O/Wt Last Vital Signs Temp 99.7 F H 04/27/21 15:50 Pulse 81 04/27/21 15:50 Resp 18 04/27/21 15:50 BP 138/90 04/27/21 15:50 Pulse Ox 95 04/27/21 15:50 04/27/21 04/27/21 04/27/21 06:59 14:59 22:59 Intake Total 1000 / 1000 300 / 300 Output Total 600 / 600 Balance 1000 / 1000 -300 / -300 Weight last 48 hrs Weight 131.95 kg Weight 127.006 kg Physical Exam Const: COMMON NORMALS: patient oriented x3 HENMT: COMMON NORMALS: normocephalic and atraumatic HEAD & SCALP: normocephalic and atraumatic Resp: COMMON NORMALS: clear to auscultation bilaterally AUSCULTATION: clear to auscultation bilaterally Cardio: COMMON NORMALS: regular rate, regular rhythm, S1 normal heart sound present, S2 normal heart sound present, No gallops present (Cardio), No murmurs present (Cardio), No rub (Cardio) and Peripheral pulses 2+ throughout RATE: regular rate RHYTHM: regular rhythm HEART SOUNDS: S1 normal heart sound present and S2 normal heart sound present PERIPHERAL PULSES: Peripheral pulses 2+ throughout GI: COMMON NORMALS: Normal to inspection, nondistended, normoactive bowel sounds present AUSCULTATION: Yes normoactive bowel sounds RECTAL EXAM: Yes deferred OTHER: lt lower quadrant abdominal tenderness present,guarding present, no rebound tenderness. Extremity: COMMON NORMALS: no clubbing, cyanosis or edema and no pedal edema Neuro: COMMON NORMALS: patient oriented x3 Data : 04/27/21 16:38 04/27/21 01:40 A&P Assessment and plan (1) Acute abdominal pain: Patient presented with acute onset of lt lower quadrant abdominal pain.Continue to complain of pain. C.T Scan of abdomen and pelvis has shown:Right rectus abdominal muscular hematoma with suspicion active hemorrhage. Serial H&H has remained stable so far. Currently on morphine and norco for pain control. Laxative therapy Status: Acute (2) Rectus sheath hematoma: Status: Acute Qualifiers: Encounter type: initial encounter Qualified Code(s): S30.1XXA - Contusion of abdominal wall, initial encounter (3) COVID-19: Currently saturating well on R/A.Deny sob,fever,chills.Has cough. S/p monoclonal antibody infusion. As the patient qualifies for it. Status: Acute (4) NSAID long-term use: Status: Acute (5) BMI 38.0-38.9,adult: Status: Chronic (6) Hypertension: Status: Chronic Qualifiers: Hypertension type: primary hypertension Qualified Code(s): I10 - Essential (primary) hypertension (7) Hyperlipidemia: Status: Chronic Qualifiers: Hyperlipidemia type: unspecified Qualified Code(s): E78.5 - Hyperlipidemia, unspecified Additional A&P Information Observation admission Serial H&H Pain control Laxative therapy Hold scheduled NSAID therapy Dr. Lundberg will see the patient in consultation Incentive spirometer and flutter valve Cough suppressant Discussed with patient the need to ensure adequate lung expansion and not limiting lung expansion due to abdominal pain given that he already has known COVID-19. With current BMI and hypertension at risk of progressing to severe COVID. He had already been evaluated and considered for monoclonal antibody treatment. I discussed with him and he deferred to his . Reviewed with his who was happy that we could provide the infusion center in the hospital setting. Gave her an opportunity to ask questions which were answered highlighting the primary benefits and potential side effects covered in the FDA EUA fact sheets. was agreeable to infusion and Mr. Candelaria was also okay after this was determined. Monoclonal antibody infusion has been ordered to be administered today Continue home amlodipine, triamterene/hydrochlorothiazide and lisinopril for blood pressure Continue home statin therapy Continue home PPI Continue home vitamin C Supportive care otherwise Currently low risk for VTE secondary to observation status Findings, concerns and plans were discussed with patient and he was given opportunity to ask questions Anticipate disposition home with outpatient follow-up Full code Attestations Medical Necessity Statement*: Patient needs to be in hospital for the management of rectus sheet bleeding Coding Level of Care Code Acute Puttying And Calking Supervisor for Chg Fwd Diagnoses Acute abdominal pain R10.9 Rectus sheath hematoma S30.1XXA Encounter type: initial encounter COVID-19 U07.1 NSAID long-term use Z79.1 BMI 38.0-38.9,adult Z68.38 Hypertension I10 Hypertension type: primary hypertension Hyperlipidemia E78.5 Hyperlipidemia type: unspecified
[2021-04-27] MEDS: sennosides 8.6 mg Tablet 17.2 MG PO (20:11)
[2021-04-27] MEDS: HYDROcodone-acetaminophen 5-325 mg Tablet 1 TAB PO (20:11)
[2021-04-27 22:06] LABS: Hematocrit 44.4 % (42.0-52.0); Hemoglobin 15.1 g/dL (11.7-16.6)
[2021-04-27] MEDS: guaiFENesin-dextromethorphan UDC 10 mL PO (23:25)
[2021-04-28] VITALS (8 sets, daily range): BP systolic 118–144; BP diastolic 68–88; PULSE 56–77; RESP 16–18; TEMP 36.3–37.6; O2SAT 90–93
[2021-04-28] MEDS: ascorbic acid 500 mg Tablet 1000 MG PO (05:21)
[2021-04-28] MEDS: HYDROcodone-acetaminophen 5-325 mg Tablet 1 TAB PO ×4 (05:22→20:30)
[2021-04-28] MEDS: lisinopril 20 mg Tablet PO (05:22)
[2021-04-28] MEDS: amlodipine 5 mg Tablet PO (05:22)
[2021-04-28 06:16] LABS: Alanine Aminotransferase 30 U/L (0-41); Albumin Level 3.6 g/dL (3.5-5.2); Alkaline Phosphatase 56 IU/L (40-130); Aspartate Amino Transferase 45 U/L (0-40); Blood Urea Nitrogen 20 mg/dL (8-23); Calcium 7.8 mg/dL (8.5-10.5); Carbon Dioxide 25 mmol/L (22-29); Chloride 102 mmol/L (98-107); Globulin 2.7 g/dL (1.3-4.6); Glomerular Filtration Rate 74.8 mL/min (90-130); Glucose 124 mg/dL (65-115); Magnesium 1.7 mg/dL (1.7-2.3); Osmolality Calculated 290 mOsm/kg (285-295); Phosphorus 2.7 mg/dL (2.5-4.5); Sodium 138 mmol/L (136-145); Total Bilirubin 0.4 mg/dL (0.15-1.2); Total Protein 6.3 g/dL (6.6-8.7)
--- NOTE | 2021-04-28 06:47 | P.PN_ITS ---
Subjective Subjective: Interval history: The patient says he feels better today. He is concerned about getting constipated and would like some MiraLAX. Vitals/I&O/Wt Last Vital Signs Temp 99.7 F H 04/28/21 04:00 Pulse 72 04/28/21 04:00 Resp 18 04/28/21 04:00 BP 134/88 04/28/21 04:00 Pulse Ox 90 04/28/21 04:00 04/27/21 04/27/21 04/28/21 14:59 22:59 06:59 Intake Total 300 / 780 480 / 780 Output Total 775 / 1050 275 / 1050 Balance -475 / -270 205 / -270 Weight last 48 hrs Weight 290 lb 14.4 oz Weight 280 lb Physical Exam Narrative: EXAM NARRATIVE: The mass-effect to the right side of the umbilicus is little less noticeable today, but he does remain focally tender there. Data : 04/27/21 21:58 04/28/21 05:39 A&P Assessment and plan (1) Rectus sheath hematoma: CT reviewed. The patient has a right-sided rectus sheath hematoma adjacent to the umbilicus. He has evidence of previous mesh placement on the abdominal wall and one of the areas is just posterior to this. These hematomas normally occur in patients on anticoagulation, which he is not, but I have to assume that all of the multiple abdominal wall surgeries that he has had in the past may have contributed to its formation with increased coughing, etc. I have discussed the rectus sheath hematoma with the patient once again. Given the mesh in his abdomen, I do not want him to have an open wound in that region. We have elected to let this resolve by itself. From my perspective, he can be discharged whenever it can be done safely given his other medical issues. Status: Acute Qualifiers: Encounter type: initial encounter Qualified Code(s): S30.1XXA - Contusion of abdominal wall, initial encounter (2) COVID-19: Status: Acute Attestations Medical Necessity Statement*: See admitting service's notation. Coding Level of Care Code Acute Right Of Way Supervisor for [facility] Diagnoses Rectus sheath hematoma S30.1XXA Encounter type: initial encounter COVID-19 U07.1
--- NOTE | 2021-04-28 09:24 | XR_ITS ---
WS: [id number] Exam: XR chest 1V portable [id number] Date/Time of Exam: 04/28/2021 10:00 AM Reason For Exam: fever Comparison 10/20/2018. Mild right perihilar infiltrate noted. The lungs are otherwise clear. No pneumothorax or pleural effu sions. Cardiomediastinal silhouette is unremarkable for technique. XR/XR chest 1V portable [id number] IMPRESSION: 1. Mild right perihilar infiltrate suspicious for pneumonia.
[2021-04-28] MEDS: docusate sodium 100 mg Capsule PO ×2 (10:15→19:16)
[2021-04-28] MEDS: atorvastatin 40 mg Tablet 20 MG PO (10:15)
[2021-04-28] MEDS: polyethylene glycol 3350 Pkt 17 gm PO (10:15)
[2021-04-28] MEDS: pantoprazole DR 40 mg Tablet PO (10:15)
--- NOTE | 2021-04-28 11:28 | P.PN_ITS ---
Subjective Subjective: Interval history: Patient was seen and examined this, continues to have left lower quadrant abdominal pain, cough, was febrile overnight. T-max was: 102.9. A.m. x-ray chest: Shows mild perihilar infiltrates. Medications: Reviewed: Yes Vitals/I&O/Wt Last Vital Signs Temp 98.2 F 04/28/21 08:00 Pulse 77 04/28/21 08:13 Resp 16 04/28/21 08:13 BP 127/85 04/28/21 08:00 Pulse Ox 92 04/28/21 08:13 04/27/21 04/28/21 04/28/21 22:59 06:59 14:59 Intake Total 300 / 300 480 / 780 240 / 240 Output Total 775 / 775 275 / 1050 Balance -475 / -475 205 / -270 240 / 240 Weight last 48 hrs Weight 131.95 kg Weight 127.006 kg Physical Exam Const: COMMON NORMALS: patient oriented x3 HENMT: COMMON NORMALS: normocephalic and atraumatic HEAD & SCALP: normocephalic and atraumatic Resp: COMMON NORMALS: clear to auscultation bilaterally AUSCULTATION: clear to auscultation bilaterally Cardio: COMMON NORMALS: regular rate, regular rhythm, S1 normal heart sound present, S2 normal heart sound present, No gallops present (Cardio), No murmurs present (Cardio), No rub (Cardio) and Peripheral pulses 2+ throughout RATE: regular rate RHYTHM: regular rhythm HEART SOUNDS: S1 normal heart sound present and S2 normal heart sound present PERIPHERAL PULSES: Peripheral pulses 2+ throughout GI: COMMON NORMALS: Normal to inspection, nondistended, normoactive bowel sounds present AUSCULTATION: Yes normoactive bowel sounds RECTAL EXAM: Yes deferred OTHER: lt lower quadrant abdominal tenderness present,guarding present, no rebound tenderness. Extremity: COMMON NORMALS: no clubbing, cyanosis or edema and no pedal edema Neuro: COMMON NORMALS: patient oriented x3 Data : 04/27/21 21:58 04/28/21 05:39 Micro: Microbiology 04/28/21 11:14 Blood Culture - Preliminary Blood SPECIMEN COLLECTED 04/28/21 11:12 Blood Culture - Preliminary Blood SPECIMEN COLLECTED A&P Assessment and plan (1) Pneumonia: Pneumonia secondary to COVID-19: Patient has cough, fever, X-ray chest: Mild right perihilar infiltrate. Covid rapid antigen positive follow Inflammatory markers (D-dimer LDH ESR CRP ) Procalcitonin 0.27 Lactic acid Blood culture: S/P 1 dose of monoclonal antibody infusion. Continue Solu-Medrol 40 mg IV daily Levofloxacin 750 mg IV daily Ascorbic acid Spirivia Inhaler Supplemental oxygen as needed Status: Acute (2) COVID-19: Currently saturating well on R/A.Deny sob,fever,chills.Has cough. S/p monoclonal antibody infusion. As the patient qualifies for it. Status: Acute (3) Acute abdominal pain: Patient presented with acute onset of lt lower quadrant abdominal pain.Continue to complain of pain. C.T Scan of abdomen and pelvis has shown:Right rectus abdominal muscular hematoma with suspicion active hemorrhage. Serial H&H has remained stable so far. Currently on morphine and norco for pain control. Laxative therapy Status: Acute (4) Rectus sheath hematoma: Status: Acute Qualifiers: Encounter type: initial encounter Qualified Code(s): S30.1XXA - Contusion of abdominal wall, initial encounter (5) NSAID long-term use: Status: Acute (6) BMI 38.0-38.9,adult: Status: Chronic (7) Hypertension: Status: Chronic Qualifiers: Hypertension type: primary hypertension Qualified Code(s): I10 - Essential (primary) hypertension (8) Hyperlipidemia: Status: Chronic Qualifiers: Hyperlipidemia type: unspecified Qualified Code(s): E78.5 - Hyperlipidemia, unspecified Additional A&P Information Observation admission Serial H&H Pain control Laxative therapy Hold scheduled NSAID therapy Dr. Lundberg will see the patient in consultation Incentive spirometer and flutter valve Cough suppressant Discussed with patient the need to ensure adequate lung expansion and not limiting lung expansion due to abdominal pain given that he already has known COVID-19. With current BMI and hypertension at risk of progressing to severe COVID. He had already been evaluated and considered for monoclonal antibody treatment. I discussed with him and he deferred to his . Reviewed with his who was happy that we could provide the infusion center in the hospital setting. Gave her an opportunity to ask questions which were answered highlighting the primary benefits and potential side effects covered in the FDA EUA fact sheets. was agreeable to infusion and Mr. Candelaria was also okay after this was determined. Monoclonal antibody infusion has been ordered to be administered today Continue home amlodipine, triamterene/hydrochlorothiazide and lisinopril for blood pressure Continue home statin therapy Continue home PPI Continue home vitamin C Supportive care otherwise Currently low risk for VTE secondary to observation status Findings, concerns and plans were discussed with patient and he was given opportunity to ask questions Anticipate disposition home with outpatient follow-up Full code Attestations Medical Necessity Statement*: Patient needs to be in hospital for management of pneumonia. Coding Level of Care Code Acute Commercial Finance Manager for g Fwd Exam Detailed Diagnoses Pneumonia J18.9 COVID-19 U07.1 Acute abdominal pain R10.9 Rectus sheath hematoma S30.1XXA Encounter type: initial encounter NSAID long-term use Z79.1 BMI 38.0-38.9,adult Z68.38 Hypertension I10 Hypertension type: primary hypertension Hyperlipidemia E78.5 Hyperlipidemia type: unspecified
[2021-04-28 11:58] LABS: Lactate (Lactic Acid level) 1.7 mmol/L (0.5-2.2)
[2021-04-28 12:03] LABS: Procalcitonin 0.27 ng/mL (0-0.5)
[2021-04-28] MEDS: levofloxacin-dextrose 5 % 750 MG/150 ML PREMIX 100 MG IV (12:46)
[2021-04-28] MEDS: sennosides 8.6 mg Tablet 17.2 MG PO (20:30)
[2021-04-29] MEDS: HYDROcodone-acetaminophen 5-325 mg Tablet 1 TAB PO ×2 (01:59→06:22)
[2021-04-29 04:00] VITALS: BP 127/82; PULSE 54; RESP 18; TEMP 36.3; O2SAT 95
[2021-04-29] MEDS: lisinopril 20 mg Tablet PO (06:21)
[2021-04-29] MEDS: ascorbic acid 500 mg Tablet 1000 MG PO (06:22)
[2021-04-29] MEDS: amlodipine 5 mg Tablet PO (06:22)
[2021-04-29 06:40] LABS: Basophils % 0.2 %; Hemoglobin 14.4 g/dL (11.7-16.6); Lymphocytes # 1.3 10^3/uL (0.8-4.8); Lymphocytes % 19.8 %; Mean Corpuscular Hemoglobin 30.4 pg (28.0-34.0); Mean Corpuscular Volume 94.9 fl (80-94); Monocytes # 0.9 10^3/uL (0.2-0.9); Monocytes % 14.6 %; Neutrophils # 4.19 10^3/uL (1.8-7.7); Neutrophils % 65.2 %; Nucleated Red Blood Cells % 0 %; Platelet Count 168 10^3/cmm (130-400); Red Blood Count 4.74 10^6/uL (4.1-5.3); Red Cell Distribution Width 12.6 % (12.1-15.1); White Blood Count 6.4 10^3/uL (4.0-10.0)
[2021-04-29 07:24] LABS: Blood Urea Nitrogen 17 mg/dL (8-23); Carbon Dioxide 26 mmol/L (22-29); Chloride 104 mmol/L (98-107); Glomerular Filtration Rate 96.7 mL/min (90-130); Glucose 141 mg/dL (65-115); Osmolality Calculated 292 mOsm/kg (285-295); Sodium 139 mmol/L (136-145)
[2021-04-29 07:53] VITALS: BP 128/81; PULSE 55; RESP 18; TEMP 36.8; O2SAT 93
[2021-04-29] MEDS: pantoprazole DR 40 mg Tablet PO (08:14)
[2021-04-29] MEDS: atorvastatin 40 mg Tablet 20 MG PO (08:14)
[2021-04-29] MEDS: polyethylene glycol 3350 Pkt 17 gm PO (08:14)
[2021-04-29] MEDS: docusate sodium 100 mg Capsule PO (08:14)
--- NOTE | 2021-04-29 08:33 | PC.NURSE ---
patient sitting on side of bed denies pain or needs.
--- NOTE | 2021-04-29 08:56 | P.PN_ITS ---
Subjective Subjective: Interval history: The patient indicates that the area have his rectus hematoma is much more comfortable. It sounds like he is getting a little bit more treatment for his respiratory problem but then is going to be discharged. Vitals/I&O/Wt Last Vital Signs Temp 98.3 F 04/29/21 07:53 Pulse 55 L 04/29/21 07:53 Resp 18 04/29/21 07:53 BP 128/81 04/29/21 07:53 Pulse Ox 93 04/29/21 07:53 04/28/21 04/29/21 04/29/21 22:59 06:59 14:59 Intake Total 390 / 1510 Balance 390 / 1510 Weight last 48 hrs Weight 290 lb 14.4 oz Physical Exam Narrative: EXAM NARRATIVE: Abdomen is less tender on exam. Data : 04/29/21 06:03 04/29/21 06:03 Micro: Microbiology 04/28/21 11:14 Blood Culture - Preliminary Blood SPECIMEN COLLECTED 04/28/21 11:12 Blood Culture - Preliminary Blood SPECIMEN COLLECTED A&P Assessment and plan (1) Rectus sheath hematoma: CT reviewed. The patient has a right-sided rectus sheath hematoma adjacent to the umbilicus. He has evidence of previous mesh placement on the abdominal wall and one of the areas is just posterior to this. These hematomas normally occur in patients on anticoagulation, which he is not, but I have to assume that all of the multiple abdominal wall surgeries that he has had in the past may have contributed to its formation with increased coughing, etc. The patient is much more comfortable today. We have elected to continue allowing this to resolve spontaneously. The patient can be discharged whenever it is okay with the hospitalist service. Please contact me if I can be of further help. Status: Acute Qualifiers: Encounter type: initial encounter Qualified Code(s): S30.1XXA - Contusion of abdominal wall, initial encounter (2) COVID-19: Status: Acute Attestations Medical Necessity Statement*: See admitting service's notation. Coding Level of Care Code Acute Laser Beam Color Scanner Operator for Shar Greg Diagnoses Rectus sheath hematoma S30.1XXA Encounter type: initial encounter COVID-19 U07.1
--- NOTE | 2021-04-29 09:32 | P.DS_ITS ---
Discharge Providers Date of Admission: 04/27/21 07:03 Date of Discharge: April 29, 2021 Attending Provider at Admission: Latonia Aponte MD Attending Provider at Discharge: Cristofer Hall MD Diagnoses at Discharge Discharge Diagnosis (1) Rectus sheath hematoma: Status: Acute Qualifiers: Encounter type: initial encounter Qualified Code(s): S30.1XXA - Contusion of abdominal wall, initial encounter (2) COVID-19: Status: Acute Reason for Visit Reason for Visit: severe abd pains Hospital Course Hospital Course 65 year old male with a known history of COVID-19 who presented to the emergency room with chief complaint of rt lower abdominal pain of acute onset.Likely 2/2 to coughing C.T abdomen and pelvis showed Right rectus abdominal muscular hematoma with suspicion active hemorrhage.Surgery evaluated the patient and it was decided to manage the patient conservatively.H&H was monitored and it remained stable.Patient also initially received monoclonal antibody for covid but later he was also given steroids for 2 days in hospital as well as empiric Abx as he had temperature spike and xray chest wa showing Mild right perihilar infiltrate suspicious for pneumonia, he was discharged on po levofloxacin , blood culture was negative at the time of discharge. He was saturating well on room air.Patient responded well to above medical management and was discharged in stable condition. He will continue to follow his pcp as outpatient. Physical Exam Const: COMMON NORMALS: patient oriented x3 HENMT: COMMON NORMALS: normocephalic and atraumatic HEAD & SCALP: normocephalic and atraumatic Resp: COMMON NORMALS: clear to auscultation bilaterally AUSCULTATION: clear to auscultation bilaterally Cardio: COMMON NORMALS: regular rate, regular rhythm, S1 normal heart sound present, S2 normal heart sound present, No gallops present (Cardio), No murmurs present (Cardio), No rub (Cardio) and Peripheral pulses 2+ throughout RATE: regular rate RHYTHM: regular rhythm HEART SOUNDS: S1 normal heart sound present and S2 normal heart sound present PERIPHERAL PULSES: Peripheral pulses 2+ throughout GI: COMMON NORMALS: Normal to inspection, nondistended, normoactive bowel sounds present AUSCULTATION: Yes normoactive bowel sounds RECTAL EXAM: Yes deferred OTHER: lt lower quadrant abdominal tenderness present,guarding present, no rebound tenderness. Extremity: COMMON NORMALS: no clubbing, cyanosis or edema and no pedal edema Neuro: COMMON NORMALS: patient oriented x3 Discharge Data Data Completed and Pending: Completed Studies During Hospitalization Category Date Time Status CT abdomen pelvis w con* [id number] Urge nt Cat Scan 04/27/21 01:32 Completed XR chest 1V marii ble [id number] Routine Exams 04/28/21 09:24 Completed Pending at discharge Category Date Time Status Blood Culture [facility] 04/28/21 11:14 Results Labs from last 24 hours 04/29/21 04/29/21 04/28/21 06:03 06:03 11:12 WBC 6.4 RBC 4.74 Hgb 14.4 Hct 45.0 MCV 94.9 H MCH 30.4 MCHC 32.0 RDW 12.6 Plt Count 168 MPV 12.0 H Neut % (Auto) 65.2 Lymph % (Auto) 19.8 Jackson % (Auto) 14.6 Eos % (Auto) 0.0 Baso % (Auto) 0.2 Neut # (Auto) 4.19 Lymph # (Auto) 1.3 Jackson # (Auto) 0.9 Eos # (Auto) 0.0 Baso # (Auto) 0.0 Nucleated RBC % (a uto) 0 Nucleated RBCs # 0.0 Sodium 139 Potassium 4.0 Chloride 104 Carbon Dioxide 26 Anion Gap 13.0 BUN 17 Creatinine 0.8 GFR Calculation 96.7 Glucose 141 H Calculated Osmolal ity 292 Lactate Calcium 8.0 L Procalcitonin 0.27 04/28/21 11:12 WBC RBC Hgb Hct MCV MCH MCHC RDW Plt Count MPV Neut % (Auto) Lymph % (Auto) Jackson % (Auto) Eos % (Auto) Baso % (Auto) Neut # (Auto) Lymph # (Auto) Jackson # (Auto) Eos # (Auto) Baso # (Auto) Nucleated RBC % (a uto) Nucleated RBCs # Sodium Potassium Chloride Carbon Dioxide Anion Gap BUN Creatinine GFR Calculation Glucose Calculated Osmolal ity Lactate 1.7 Calcium Procalcitonin Vitals: Last Vital Signs Temp 98.3 F 04/29/21 07:53 Pulse 55 L 04/29/21 07:53 Resp 18 04/29/21 07:53 BP 128/81 04/29/21 07:53 Pulse Ox 93 04/29/21 07:53 Discharge Plan Discharge Patient Disposition: Home Condition: Stable Prescriptions: New codeine-guaifenesin 10-100 mg/5 mL Liquid 10 ml PO Q4H PRN (Reason: Cough) 7 Days Qty: 300 RF: 0 levofloxacin 500 mg tablet 500 mg PO DAILY 5 Days Qty: 5 RF: 0 Continued lisinopril 20 mg tablet 20 mg PO QAM RF: 0 meloxicam 15 mg tablet 15 mg PO QAM RF: 0 omeprazole 20 mg tablet,delayed release (DR/EC) 20 mg PO QAM RF: 0 amlodipine 5 mg tablet 5 mg PO QAM RF: 0 triamterene-hydrochlorothiazid 75-50 mg tablet 1 tab PO QAM RF: 0 Alpha Alpha Pills 3 tab PO QAM RF: 0 Vitamin C 1,000 mg Tablet 1,000 mg PO QAM RF: 0 atorvastatin 20 mg tablet 20 mg PO QAM RF: 0 evening primrose oil 500 mg Capsule 1,000 mg PO QAM RF: 0 sildenafil 50 mg tablet 50 mg PO PRN PRN (Reason: Erectile Dysfunction) RF: 0 Aleve 220 mg Tablet 220 mg PO Q12H PRN (Reason: Pain) RF: 0 Glucosamine Chondroitin 550-30-1 mg Capsule 2 cap PO QAM RF: 0 Discontinued ivermectin 1 tab PO QAM RF: 0 Discharge Orders: Discharge Order (Routine); Ordered 04/29/21 Ordered By: Cristofer Hall Referrals: Criselda Gregory MD [Staff Physician] - 05/03/21 10:00 am Discharge Diet: Regular Discharge Activity: Resume usual activity Patient Instructions: Hematoma (ED), COVID-19 (Coronavirus Disease 2019) (DC), Opioid Safety Discharge Attestations Time Spent in Discharge Care*: less than 30 min Specific Discharge Activities: educating patient, educating and/or supporting family/caregiver, discussing with pcp/other providers, discussing with case management manager/social workers/dc planners, documenting/other paperwork and evaluating patient/reviewing data Status at Discharge: Cognitive status at discharge: cognitively intact , Behavioral status at discharge: cooperative , Functional status at discharge: independent ambulation Overall status at discharge: patient is back to baseline Quality Metrics Clinical Quality Measures During this hospital stay, did patient experience: None Coding Level of Care Code Acute Chg FW DC note Diagnoses Rectus sheath hematoma S30.1XXA Encounter type: initial encounter COVID-19 U07.1
[2021-04-29 10:40] VITALS: PULSE 66; RESP 18; O2SAT 93
[2021-04-29 11:33] VITALS: BP 128/81; PULSE 66; RESP 18; TEMP 36.8; O2SAT 93
--- NOTE | 2021-04-29 11:42 | PC.NURSE ---
discharge instructions reviewed with patient, verbalizes understanding and denies further questions or concerns.
== END 2021-04-29 13:03 | disposition home or self-care (01) ==
LOC: ER 05:11 → ER IP 08:12 → MEDSURG 13:36
PROVIDERS: Hospitalist; Admitting Provider Internal Medicine; Emergency Provider Emergency Medicine; Visit Provider Internal Medicine
DX: U07.1 COVID-19 (principal); J12.82 Pneumonia due to coronavirus disease 2019; S30.1XXA Contusion of abdominal wall, initial encounter; X58.XXXA Exposure to other specified factors, initial encounter; R10.9 Unspecified abdominal pain; E78.5 Hyperlipidemia, unspecified; I10 Essential (primary) hypertension; E66.9 Obesity, unspecified; Z68.38 Body mass index [BMI] 38.0-38.9, adult; Z79.1 Long term (current) use of non-steroidal anti-inflammatories (NSAID); K21.9 Gastro-esophageal reflux disease without esophagitis; M10.9 Gout, unspecified
CPT/HCPCS: 36415; 71045; 74177; 80048; 80053; 83605; 83690; 83735; 84100; 84145; 85014; 85018; 85025; 85610; 85730; 87040; 94640; 94660; 96361; 96374; 96375; 96376; 99291; G0378; J1956; J2270; J2405; J2920; J7030; J7611; Q9967

== ENCOUNTER → 2021-07-20 09:57 | Outpatient (BNVA) | payer MEDICARE, SELFPAY | PROVIDERS: Referring Provider Family Medicine; Visit Provider Orthopaedic Surgery | DX: M25.522 Pain in left elbow (principal); M77.8 Other enthesopathies, not elsewhere classified | CPT/HCPCS: 73080 ==

== ENCOUNTER → 2021-07-29 08:37 | Outpatient (BNVA) | payer MEDICARE, SELFPAY | PROVIDERS: Visit Provider Orthopaedic Surgery | DX: Z01.812 Encounter for preprocedural laboratory examination (principal); Z20.822 Contact with and (suspected) exposure to COVID-19 | CPT/HCPCS: 87635 ==

== ENCOUNTER 2021-08-04 05:45 | Day surgery (SDC) | payer MEDICARE, SELFPAY ==
[2021-08-03 15:59] VITALS: BMI 39.0
--- NOTE | 2021-08-04 | SCC_ITS ---
Procedure done: Excision left olecranon spur, excision left olecranon bursa, 2.1 seconds of fluoroscopic guidance, for a cumulative dose of 0.09 mGy, was provided to Dr. Pace by the radiology department. C-arm images of the LEFT elbow were saved for the patient's permanent record. [facility]
[2021-08-04 06:10] VITALS: BP 138/89; PULSE 54; RESP 18; TEMP 36.5; O2SAT 94
[2021-08-04] MEDS: sodium chloride 0.9% 1,000 ML 30 ML IV (06:23)
--- NOTE | 2021-08-04 06:53 | ANES.PREANE2 ---
Pre-Anesthetic Assessment Height/Weight: Height 1.8 m Weight 127.006 kg Temp Pulse Resp BP Pulse Ox 97.7 F 54 L 18 138/89 94 08/04/21 06:10 08/04/21 06:10 08/04/21 06:10 08/04/21 06:10 08/04/21 06:10 Preop Diagnosis: Left olecranon spur, recurrent bursitis Operation Date: 08/04/21 07:00 Proposed Procedures p Olecranon Bursal Excision 16621/m70.32(Left) - Fox Pace MD Familial anesthetic complications: None Was Beta Tereza taken within 24 hours: N/A Was Clonidine taken within 24 hours: N/A Last intake: Intake Last Liquid Date 08/03/21 Last Liquid Time 18:00 Last Solid Date 08/03/21 Last Solid Time 18:00 Social No alcohol and No tobacco Exam alert, oriented x 3, clear to auscultation bilaterally and regular rate & rhythm Airway Submandibular: within normal limits Cervical ROM: within normal limits Mallampati: Class I Dentition: full Pulmonary Sleep Apnea (Wears CPAP) CV/HEM Hypertension METS > 4 None reported Hepatic None reported GI Gastroesophageal Reflux Disease Metabolic None reported Musc/skel Gout Neuropsych None reported Anesthetic Plan ASA status: 3 (66 year old obese male w/ NANCY on CPAP, HTN, GERD, [place]) Anesthesia: Anesthesia Evaluation and General Other: We discussed risk and benefits of general anesthesia including PONV, sore throat (sometimes severe), corneal abrasion, positioning and peripheral nerve injuries, life threatening allergic reaction, post operative ICU admission requiring prolonged intubation, stroke, heart attack, , and rare incidences of recall. Patient consents to proceed with general anesthesia. Risk of > 500 ml blood loss (7ml/kg in children): No Medications/Allergies Home Medications Medication Instructions Recorded Confirmed Last Taken Type amlodipine 5 mg tablet 5 mg PO QAM 04/25/21 08/04/21 08/04/21 History lisinopril 20 mg tablet 20 mg PO QAM 04/25/21 08/04/21 08/03/21 History meloxicam 15 mg tablet 15 mg PO QAM 04/25/21 08/04/21 08/03/21 History omeprazole 20 mg tablet,delayed 20 mg PO QAM 04/25/21 08/04/21 08/04/21 History release triamterene 75 1 tab PO QAM 04/25/21 08/04/21 08/03/21 History mg-hydrochlorothiazide 50 mg tablet Alpha Alpha Pills 3 tab PO QAM 04/27/21 08/03/21 Unknown History ascorbic acid (vitamin C) 1,000 mg 1,000 mg PO QAM 04/27/21 08/04/21 08/03/21 History tablet (Vitamin C) glucosamine sulf dipot 2 cap PO QAM 04/27/21 08/04/21 08/03/21 History chlr,msm,chond 550 mg-C 30 mg-vita 1 mg capsule (Glucosamine Chondroitin) naproxen sodium 220 mg tablet 220 mg PO Q12H PRN 04/27/21 08/04/21 08/03/21 History (Aleve) sildenafil 50 mg tablet 50 mg PO PRN PRN 04/27/21 08/03/21 Unknown History Allergies Allergy/AdvReac Type Severity Reaction Status Date / Time No Known Allergies Allergy Verified 07/20/21 09:42 Current Medications Generic Name Dose Route Start Last Admin Trade Name Freq PRN Reason Stop Dose Admin Sodium Chloride 1,000 mls @ 30 mls/hr 08/04/21 06:00 08/04/21 06:23 Sodium Chloride 0.9% IV 08/05/21 05:59 30 mls/hr .Q24H SAVANNA Administration PFSH Anesthesia Medical History Acute abdominal pain Arthritis BMI 38.0-38.9,adult COVID-19 Erectile dysfunction sildenafil GERD (gastroesophageal reflux disease) Gout Hyperlipidemia Hypertension NSAID long-term use Pneumonia Rectus sheath hematoma Surgical History History of blepharoplasty History of knee surgery Bilateral History of ventral hernia repair x 6 ([place], [place], etc.) Status post cholecystectomy Family History Son Diabetes Type 1 diabetes Social History Smoking and tobacco status: never smoked Alcohol intake: current Household members: spouse Marital status: Data Anesthesia Cardiac Studies: No Data to Display
--- NOTE | 2021-08-04 08:03 | XR_ITS ---
WS: [id number] XR elbow LT 2V [id number] REASON FOR EXAM: OR PICS. FINDINGS: Single lateral view of the left elbow in surgery. Large olecranon enthesophyte at the triceps insertion. Potential intra-articular loose bodies seen on the examination of 07/20/2021 not identifiable, however this may be technique. XR/XR elbow LT 2V [id number] IMPRESSION: Left elbow in surgery as above.
--- NOTE | 2021-08-04 08:05 | W.PM.OPSUD ---
Surgery/Procedure H&P Update DATE OF PROCEDURE: August 04, 2021 DATE H&P PERFORMED: 07/20/21 H&P UPDATE INFORMATION: I have reviewed H&P completed within last 30 days PREOP DIAGNOSIS: Left olecranon spur, recurrent bursitis PLANNED PROCEDURE: Operation Date: 08/04/21 07:00 Proposed Procedures p Olecranon Bursal Excision [id number]/m70.32(Left) - Fox Pace MD
--- NOTE | 2021-08-04 08:05 | PM.OP ---
Operative Report Date of procedure: August 04, 2021 Pre-op diagnosis: Preop Diagnosis Left olecranon spur, recurrent bursitis Post-op diagnosis: same Post-op diagnosis: Left olecranon spur, recurrent left elbow bursitis, tophaceous gout left olecranon bursa Procedure done: Excision left olecranon spur, excision left olecranon bursa, Pathology: none sent Surgeon: Fox Pace Anesthesia: General Estimated blood loss (mL): 5 Tourniquet time (min): 32 Condition: stable Disposition: PACU Brief History: The patient has had recurrent swelling and pain over the left elbow. In addition to bursal swelling a large olecranon spur was identified on radiographs. There was no known history of gout. The patient was taken to the operating room for excision of the olecranon spur and end of bursa. Procedure: The patient was taken to the operating room. He was given 2 g of Ancef and a general anesthesia. He was prepped and draped in the supine position with his left arm flexed over the body. A 4 cm long incision was made over the tip of the olecranon. Dissection was carried down through the skin and subcutaneous tissue. The bursa was noted with apparent tophaceous deposits throughout. With a scalpel blade it was excised full-thickness off the olecranon and sent to pathology. Dissection was then carried down more posteriorly in the area of the spur. The triceps tendon was split were tophaceous material was again encountered. The spur was outlined and removed with a rongeur. Fluoroscopic images showed satisfactory reduction. The elbow was irrigated with saline. The triceps into the insertion was reapproximated longitudinally were divided with 0 Vicryl in the subcutaneous tissue closed with 2-0 Vicryl. The skin was closed with interrupted 3-0 Prolene sutures. Xeroflo gauze, 4 x 4's, web roll, and Ortiz wrap were applied. The patient was placed in a sling. He was extubated taken recovery in stable condition.
[2021-08-04 08:07] VITALS: BP 124/74; PULSE 57; RESP 16; TEMP 36.2; O2SAT 95
[2021-08-04 08:12] VITALS: BP 125/77; PULSE 57; RESP 16; O2SAT 92
[2021-08-04 08:17] VITALS: BP 124/93; PULSE 57; RESP 18; TEMP 36.5; O2SAT 93
[2021-08-04 08:20] VITALS: BP 121/85; PULSE 54; RESP 16; TEMP 36.6; O2SAT 95
[2021-08-04 08:35] VITALS: BP 126/79; PULSE 55; RESP 17; TEMP 36.6; O2SAT 95
--- NOTE | 2021-08-04 09:38 | ANE.PACU2 ---
Inpatient post-anesthesia follow up: Airway intact: Yes Vital signs: Temperature 98 F Pulse Rate 55 Respiratory Rate 17 Blood Pressure 126/79 Pulse Oximetry 95 Oxygen Delivery Me thod Room Air Oxygen Flow Rate 6 Fraction of Inspir ed Oxygen Hydration adequate: Yes Nausea and vomiting: No Pain level: 1 Mental status: Baseline
== END 2021-08-04 09:00 | disposition home or self-care (01) ==
PROVIDERS: Visit Provider Orthopaedic Surgery
PROC: (CPT 24105; principal; 2021-08-04 07:00)
DX: M70.32 Other bursitis of elbow, left elbow (principal); K21.9 Gastro-esophageal reflux disease without esophagitis; E66.9 Obesity, unspecified; Z68.39 Body mass index [BMI] 39.0-39.9, adult; G47.33 Obstructive sleep apnea (adult) (pediatric); I10 Essential (primary) hypertension; M19.90 Unspecified osteoarthritis, unspecified site; Z86.16 Personal history of COVID-19; E78.5 Hyperlipidemia, unspecified; Z82.49 Family history of ischemic heart disease and other diseases of the circulatory system
CPT/HCPCS: 24105; 73070; 76000; 88307; J0330; J0690; J1100; J2370; J2405; J2704; J3010; J3490; J7030